=== PATIENT | female | born 1995 | race Caucasian/White ===

== ENCOUNTER → 2025-05-17 15:23 | Outpatient (CLI) | payer OTHER, SELFPAY ==
[2025-05-17 16:32] LABS: Natera Collection Specimen Collected
[2025-05-17 16:49] LABS: Add Manual Diff / Slide Review NO; Hematocrit 40.2 % (36-46); Hemoglobin 13.9 g/dL (12.0-16.0); Lymphocytes Absolute Auto 900 /uL (1100-4500); Mean Corpuscular HGB Conc 34.6 % (30-36); Mean Corpuscular Hemoglobin 29.7 PG (26-34); Mean Corpuscular Volume 85.8 fL (80-100); Platelet Count 241 X10^3/uL (150-400)
[2025-05-17 17:03] LABS: Appearance Urine UA CLEAR; Bilirubin Urine UA NEGATIVE (NEGATIVE); Color Urine UA YELLOW; Glucose Urine UA NEGATIVE (Negative); Ketones Urine UA NEGATIVE (NEGATIVE); Leukocyte Esterase Urine UA NEGATIVE (NEGATIVE); Nitrite Urine UA NEGATIVE (Negative); Occult Blood Urine UA NEGATIVE (Negative); Protein Urine UA NEGATIVE (Negative); Specific Gravity Urine UA 1.020 (1.000-1.035); Urobilinogen Urine UA 0.2 E.U./dL (0.2)
[2025-05-17 17:18] LABS: pH Urine UA 6.5 (4.5-8.0)
[2025-05-17 17:56] LABS: HIV 1 & 2 Ab/Ag 4th Gen Combo NEGATIVE (NEGATIVE); Hep C Virus Ab w/Reflex Quant NEGATIVE s/c (NEGATIVE); Hepatitis B Surface Antigen NEGATIVE s/c (NEGATIVE)
[2025-05-17 18:47] LABS: Urine N gonorrhoeae NOT DETECTED
[2025-05-17 19:08] LABS: Urine Chlamydia NOT DETECTED
== END ==
PROVIDERS: Referring Provider Family Medicine; Visit Provider Family Medicine
DX: Z34.00 Encounter for supervision of normal first pregnancy, unspecified trimester (principal); Z82.79 Family history of other congenital malformations, deformations and chromosomal abnormalities
CPT/HCPCS: 36415; 80055; 81003; 86787; 86803; 86850; 86900; 86901; 87086; 87389; 87491; 87591

== ENCOUNTER → 2025-07-06 11:49 | Outpatient (CLI) | payer OTHER, SELFPAY ==
--- NOTE | 2025-07-06 11:50 | DI.US.S_ITS ---
PROCEDURE: US OB >= 14 WEEKS FETUS INDICATIONS: Anatomy Scan OUTSIDE/PRIOR DATING DATA: Last menstrual period (LMP): 02/18/2025. LMP-based estimated date of delivery (FRANCY): 11/25/2025. The calculations are made using the working FRANCY of 11/28/2025. TECHNIQUE: Real-time scanning was performed of the fetus, with image documentation and biometric measurements. Endovaginal scanning: Not performed COMPARISON: None. FINDINGS: General: A single living intrauterine gestation is present. Presentation: Maternal right. Placenta: Placental position is anterior , without previa. Amniotic fluid index: 11.7 cm, normal range is 5-24 cm. Single deepest vertical pocket is 3.8 cm. heart rate: 170 beats per minute. Maternal cervical canal: 3.1 cm long. Normal lower limit is 2.5 cm. biometrics: Biparietal diameter: 4.4 cm, 19 weeks, 2 days Head circumference: 16.7 cm, 19 weeks, 3 days Abdominal circumference: 14.1 cm, 19 weeks, 3 days Femur length: 2.9 cm, 18 weeks, 6 days Clinically estimated gestational age: 19 weeks, 5 days Composite gestational age from present scan: 19 weeks, 2 days Estimated weight and percentile: 2079 g, 19th percentile Anatomic survey: Neuro: Ventricles are non-dilated at less than 10 mm. Cisterna magna is normal at 3-11 mm. Cerebellum is normal in size and morphology. Nuchal skin fold: Normal at less than 6 mm between 14-21 weeks gestational age. Face: Facial profile is normal, nose and lips are not well visualized. Spine: No evidence for spina bifida. Heart: Normal visualized Diaphragm: Diaphragm is intact. Stomach: Left-sided stomach is present. Kidneys: No hydronephrosis. Normal is less than 5 mm in 2nd trimester, less than 7 mm in 3rd trimester. Cord: 3-vessel cord has orthotopic insertion. Bladder: Normal in size. Extremities: All 4 extremities identified. IMPRESSION: Single intrauterine gestation with estimated gestational age of 19 weeks, 2 days based on my biometry which is concordant with clinical dating. Normal SHANEKA. Anterior placenta without previa. Normal anatomic survey demonstrates no gross abnormalities. nose and lips and heart are not well visualized. Recommend short interval follow up. Approved by: Tasha Montelongo M.D.,Ph.D. on 07/06/2025 at 21:42
[2025-07-10 17:44] LABS: Gest Age on Col Date 19.7 weeks (.); OSBR Risk 1IN 10000 (.)
== END ==
LOC: US 11:50
PROVIDERS: Referring Provider Family Medicine; Visit Provider Family Medicine
DX: Z36.89 Encounter for other specified antenatal screening (principal); Z3A.19 19 weeks gestation of pregnancy; Z82.79 Family history of other congenital malformations, deformations and chromosomal abnormalities
CPT/HCPCS: 36415; 76811; 82105